=== PATIENT | male | born 2005 | race Two or more races ===

== ENCOUNTER 2024-01-08 16:29 | Emergency (ER) | payer MEDICAID, SELFPAY ==
[2024-01-08 16:30] VITALS: BMI 36.3
[2024-01-08 16:38] VITALS: BP 137/73; PULSE 69; RESP 18; TEMP 36.8; O2SAT 99
--- NOTE | 2024-01-08 16:50 | XR_ITS ---
Examination: Testicular sonography complete Technique: By resolution grayscale sonographic images testes, assessment arterial inflow venous outflow Doppler spectral analysis carful analysis Exam date and time: January 08, 2024 1731 hrs. Indications: Onset left testicular swelling and pain beginning yesterday in the morning Findings: Right testis 4.9 x 2.2 x 3.5 cm Epididymis 13 mm Arterial flow to the testicle. No testicular mass Left testis 5.4 x 2.5 x 3.8 cm Epididymis 13 mm Arterial flow testicle. No testicular mass Bilateral testicular microlithiasis Impression: No testicular torsion or testicular mass Testicular microlithiasis
--- NOTE | 2024-01-08 16:51 | PD.EDRME ---
Rapid Medical Screening Exam RME Arrival date/time: 01/08/24 16:29 18-year-old male presents emergency department complaints of left testicular pain after lifting weights today Chief Complaint: Abdominal Pain Time Seen by Provider: 01/08/24 16:37 Vital signs: Vital Signs Temperature 98.2 F 01/08/24 16:38 Pulse Rate 69 01/08/24 16:38 Respiratory Rate 18 01/08/24 16:38 Blood Pressure 137/73 H 01/08/24 16:38 Pulse Oximetry (%) 99 01/08/24 16:38 Oxygen Delivery Method Room Air 01/08/24 16:38
--- NOTE | 2024-01-08 19:26 | PD.EDMALE ---
ED Male Genitalurinary RME/HPI General Chief complaint: Abdominal Pain Stated complaint: LEFT TESTICULAR PAIN AFTER LIFTING WEIGHTS TODAY Time Seen by Provider: 01/08/24 16:37 Source: patient Arrival date/time: 01/08/24 16:29 18-year-old male with no significant past medical history presents emergency department complaining of left testicular pain after power lifting. Patient denies any dysuria, diarrhea, fever, chills, nausea vomiting, or any other associated symptom. Mode of arrival: ambulatory Limitations: no limitations RME / HPI RME / HPI Narrative: 01/08/24 16:29 18-year-old male presents emergency department complaints of left testicular pain after lifting weights today Related Data Previous Rx's ?Medication ?Instructions ?Recorded hydrocodone 7.5 mg-acetaminophen 1 tab PO Q6H #20 tabs 10/19/23 325 mg tablet hydrocortisone 1 % topical cream 1 applic topical TID PRN itching 10/21/23 #28.4 grams ibuprofen 600 mg tablet 600 mg PO Q8H PRN pain #20 tabs 01/08/24 Allergies Allergy/AdvReac Type Severity Reaction Status Date / Time No Known Allergies Allergy Verified 01/08/24 16:33 Review of Systems Review of Systems Systems Reviewed: All systems reviewed, normal except as documented Constitutional Constitutional: Reports system reviewed and no additional complaints, except as documented, Denies body ache(s), Denies chills and Denies fever(s) Eyes Eyes: Reports system reviewed and no additional complaints, except as documented and Denies change in vision ENT Ears, Nose, Mouth, and Throat: Reports system reviewed and no additional complaints, except as documented, Denies disequilibrium, Denies dizziness, Denies sore throat and Denies vertigo Cardiovascular Cardiovascular: Reports system reviewed and no additional complaints, except as documented, Denies chest pain and Denies dyspnea Respiratory Respiratory: Reports system reviewed and no additional complaints, except as documented, Denies chest congestion, Denies cough and Denies dyspnea Gastrointestinal Gastrointestinal: Reports system reviewed and no additional complaints, except as documented, Denies abdominal pain, Denies nausea and Denies vomiting Genitourinary Genitourinary: Reports testicular pain Musculoskeletal Musculoskeletal: Reports system reviewed and no additional complaints, except as documented, Denies abnormal gait and Denies arthralgias Integumentary/Breasts Skin/Breast: Reports system reviewed and no additional complaints, except as documented, Denies erythema, Denies rash and Denies wounds Neurologic Neurologic: Reports system reviewed and no additional complaints, except as documented, Denies abnormal gait, Denies disequilibrium, Denies dizziness and Denies vertigo Past Medical History Past Medical History NEUROLOGIC: Negative Neurological Disorders or Seizures CARDIAC: Negative Cardiac Disorders or Congestive Heart Failure RESPIRATORY: Negative Chronic Obstructive Pulmonary Disease (COPD) GASTROINTESTINAL: Negative Gastrointestinal Disorders or Hepatitis GENITOURINARY: Negative Genitourinary Disorders or Renal Disease MUSCULOSKELETAL: Negative Musculoskeletal Disorders ENDOCRINE: Negative Endocrine Disorders, Diabetes Mellitus Type 1 or Diabetes Mellitus Type 2 HEMATOLOGIC: Negative Blood Disorders OTHER HISTORY: Negative Hospitalization, Autoimmune Disease, Shingles, Blood Transfusions, Blood Transfusion Reaction, Anesthesia Reactions or Cancer Family History FAMILY HISTORY: Positive Family Surgery; Negative Family Psychiatric Problems, Family Respiratory Disorders, Family Cardiac Disorders, Family Gastrointestinal Problems, Family Cancer or Family Anesthesia Reaction Social History SMOKING STATUS: Never smoker ED Exam General Limitations: Present no limitations General appearance: Present alert and in no apparent distress Head Head exam: Present atraumatic Eye Eye exam: Present normal appearance, PERRL and EOMI ENT ENT exam: Present normal exam, normal oropharynx and mucous membranes moist Neck Neck exam: Present normal inspection, full ROM and trachea midline Chest Chest inspection: Present normal inspection and symmetric chest wall rise Respiratory Respiratory exam: Present normal lung sounds bilaterally Cardiovascular Cardiovascular exam: Present regular rate, normal rhythm and normal heart sounds Abdominal Exam Abdominal exam: Present soft and normal bowel sounds exam: Present testicular tenderness (Left testicle) and normal testicular lie; Absent urethral discharge or scrotal swelling Extremities Exam Extremities exam: Present normal inspection and full ROM Back Exam Back exam: Present normal inspection and full ROM Neurological Exam Neurological exam: Present alert, oriented X3 and CN II-XII intact Psychiatric Psychiatric exam: Present normal affect and normal mood Skin Skin exam: Present warm, dry, intact and normal color Course Quality Measures none Orders Category Date Time Status US testicular Stat Exams 01/08/24 16:50 Completed Vital Signs Vital signs: Vital Signs Temperature 98.2 F 01/08/24 16:38 Pulse Rate 69 01/08/24 16:38 Respiratory Rate 18 01/08/24 16:38 Blood Pressure 137/73 H 01/08/24 16:38 Pulse Oximetry (%) 99 01/08/24 16:38 Oxygen Delivery Method Room Air 01/08/24 16:38 99% room air within normal limits Urogenital - Male MDM Narrative MDM Narrative:: 18-year-old male with no significant past medical history presents emergency department complaining of left testicular pain after power lifting. Patient denies any dysuria, diarrhea, fever, chills, nausea vomiting, or any other associated symptom. Patient appears nontoxic and hemodynamically stable. On exam no obvious scrotal edema, masses, or signs of infection. Ultrasound findings: Impression: No testicular torsion or testicular mass Testicular microlithiasis Patient discharged home and instructed to follow-up with primary care provider in 24 to 48 hours and return to emergency department for any worsening symptoms or as needed. Patient data External records reviewed:: [facility] Clinical information provided by:: patient Social determinants that could affect healthcare access:: none Patient has the following chronic illnesses:: N/A How is presenting disease/condition affected by chronic disease/condition?: no chronic disease Evaluation data The following diagnostics were reviewed and interpreted by me:: radiology exam(s) Lab and/or radiology exams considered but not ordered:: Ordered Interpretation Summary: Interpreted by me Medications / Prescriptions Medications or Prescriptions considered but not ordered:: N/A Medication administrations:: N/A Consultations Consultation(s) initiated? (list below): No Diagnosis Urogenital Male Differential Diagnosis: urinary tract infection, epididymitis and inguinal hernia Most likely diagnosis given after review of the tests above:: Testicular pain Admission Indicated Admission indicated?: not indicated Admission Request Was there a request for admission?: No Disposition Plan Disposition Plan: Discharge Discharge Attestation Discharge Attestation: The patient and all family members were given an opportunity to ask questions and understood the discharge instructions. Discharge instructions specifically effects, indications for sooner follow up or return to the emergency department, and the expected course of current diagnosis. Patient condition: Stable Discharge Plan Plan Patient Disposition: HOME (Self Care) Disposition Comment: Stable Prescriptions/Referrals Prescriptions/Med Rec: New ibuprofen 600 mg tablet 600 mg PO Q8H PRN (Reason: pain) Qty: 20 0RF No Action hydrocodone-acetaminophen 7.5-325 mg tablet 1 tab PO Q6H MDD 4 Qty: 20 0RF hydrocortisone 1 % cream 1 applic topical TID PRN (Reason: itching) Qty: 28.4 0RF Referrals: Jose Escobar MD [Primary Care Provider] - In 1 week Problem List Clinical Impression: Left testicular pain Patient/Caregiver Discharge Instructions Discharge Activity: activity as tolerated Education Materials: ED Testicular Pain, Unclear Cause Additional Instructions: Take medication as prescribed for pain. Rest and avoid strenuous activity for the next 2 days. Close follow-up with primary care provider in 24 to 48 hours. Return to emergency department for any worsening symptoms or as needed. Print Language: Cameroonian Stand Alone Forms: [employer] Award Info., Work/School Release, Patient Portal Info Letter PA/ERNST Supervising Physician PA/ERNST Supervising Physician: Dr. Loving
== END 2024-01-08 19:28 | disposition home or self-care (01) ==
PROVIDERS: Emergency Provider Emergency Medicine; PCP Family Medicine
DX: N50.89 Other specified disorders of the male genital organs (principal)
CPT/HCPCS: 76870; 99284